=== PATIENT | male | born 1960 | race Caucasian/White ===

== ENCOUNTER 2024-05-30 19:11 | Emergency (ER) | payer BC ==
[~2024-05-30] VITALS: Ht 182.9 cm; Wt 104.3 kg
[2024-05-30 19:46] LABS: BASOPHILS ABSOLUTE AUTO 0.04 K/mm3 (0.00-0.23); BASOPHILS PERCENT AUTO 0 % (0-2); EOSINOPHILS ABSOLUTE AUTO 0.01 K/mm3 (0.00-0.68); EOSINOPHILS PERCENT AUTO 0 % (0-6); Hematocrit 44.4 % (37.0-53.0); Hemoglobin 15.6 g/dL (13.5-17.5); IMMATURE GRAN ABSOLUTE AUTO 0.12 K/mm3 (0.00-0.10); IMMATURE GRAN PERCENT AUTO 1 % (0-1); LYMPHOCYTES ABSOLUTE AUTO 0.39 K/mm3 (0.84-5.20); LYMPHOCYTES PERCENT AUTO 3 % (21-46); MONOCYTES ABSOLUTE AUTO 1.07 K/mm3 (0.16-1.47); MONOCYTES PERCENT AUTO 7 % (4-13); Mean Corpuscular HGB 29.9 pg (26.0-34.0); Mean Corpuscular HGB Conc 35.1 g/dL (31.5-36.5); Mean Corpuscular Volume 85 fL (80-100); Mean Platelet Volume 9.7 fL (9.1-12.4); NEUTROPHILS ABSOLUTE AUTO 14.08 K/mm3 (1.96-9.15); NEUTROPHILS PERCENT AUTO 90 % (41-73); Platelet Count 103 K/mm3 (150-400); RDW Coefficient Variation 14.8 % (11.7-14.2); RDW Standard Deviation 46.2 fL (35.1-46.3); Red Blood Cell Count 5.21 M/mm3 (4.30-5.90); White Blood Cell Count 15.71 K/mm3 (4.00-11.30)
[2024-05-30 20:22] LABS: Albumin, Blood 3.4 g/dL (3.4-5.0); Bilirubin, Total 2.3 mg/dL (0.1-1.0); Bun/Creatinine Ratio 19.8 (12.0-20.0); Calcium, Blood 8.9 mg/dL (8.5-10.1); Creatinine, Blood 0.71 mg/dL (0.60-1.20); Globulin, Blood 3.3 g/dL (2.2-4.0); Total Protein, Blood 6.7 g/dL (6.4-8.2)
[2024-05-30] MEDS ORDERED: Ondansetron HCl 2 MG / ML 2ML Vial IV ONE (23:10)
[2024-05-30] MEDS ORDERED: NS 1,000 ML IV SCH (23:10)
[2024-05-30] MEDS ORDERED: Famotidine 10 MG/ML 2ML Vial IV ONE (23:10)
[2024-05-30] MEDS ORDERED: Mag Hydrox/AL Hydrox/Simeth 30 ML UDC PO ONE (23:10)
[2024-05-30] MEDS ORDERED: EZET10 PO (23:32)
[2024-05-30] MEDS ORDERED: FAMO20 PO (23:48)
[2024-05-30] MEDS ORDERED: ALMACONE SUSPE355 ML PO (23:48)
== END 2024-05-31 00:02 | disposition home or self-care (01) ==
LOC: ER 19:11
PROVIDERS: Student in an Organized Health Care Education/Training Program
DX: K92.1 Melena (principal); R73.9 Hyperglycemia, unspecified; D69.6 Thrombocytopenia, unspecified; E80.6 Other disorders of bilirubin metabolism; K21.9 Gastro-esophageal reflux disease without esophagitis; F10.21 Alcohol dependence, in remission
CPT/HCPCS: 80053; 83690; 85025; 86850; 86900; 86901; 93005; 93010; 96374; 96375; 99283-25; A9270; J2405; J7030